=== PATIENT | male | born 1965 | race Caucasian/White ===

== ENCOUNTER 2017-05-27 11:32 | Day surgery (SDC) | payer BC ==
[2017-05-27] MEDS ORDERED: ceFAZolin 2 GM/DEXTROSE 100 ML IV ONE (12:16)
--- NOTE | 2017-05-27 12:28 | PDANEPAE ---
ANE History of Present Illness Patient presents for excisional biopsy of left neck lymph node. ANE Past Medical History - Cardiovascular History Hx Hypertension: No Hx Arrhythmias: No Hx Chest Pain: No Hx Coronary Artery / Peripheral Vascular Disease: No Hx CHF / Valvular Disease: No Hx Palpitations: No - Pulmonary History Hx COPD: No Hx Asthma/Reactive Airway Disease: No Hx Recent Upper Respiratory Infection: No Hx Oxygen in Use at Home: No Hx Sleep Apnea: No Sleep Apnea Screening Result - Last Documented: Negative - Neurologic History Hx Cerebrovascular Accident: No Hx Seizures: No Hx Dementia: No - Endocrine History Hx Diabetes: No - Renal History Hx Renal Disorders: No - Liver History Hx Hepatic Disorders: No - Neurological & Psychiatric Hx Hx Neurological and Psychiatric Disorders: No - Cancer History Hx Cancer: Yes Cancer History Comment: MELANOMA - Congenital Disorder History Hx Congenital Disorders: No - GI History Hx Gastrointestinal Disorders: No - Chronic Pain History Chronic Pain: Yes (LT SIDE OF NECK) - Surgical History Prior Surgeries: REMVL LT SIDED FACE MELANOMA 2016. KNEE SCOPE ANE Review of Systems Review of Systems: - Exercise capacity METS (RN): 4 METS ANE Patient History - Allergies Allergies/Adverse Reactions: No Known Allergies Allergy (Unverified 10/22/09 11:22) - Home Medications Home Medications: Herbal Drugs DAILY 05/26/17 [Last Taken Unknown] ZOLPIDEM TARTRATE HS 05/26/17 [Last Taken Unknown] - NPO status NPO Since - Solids (Date): 05/27/17 (sausage egg mcMuffin) NPO Since - Solids (Time): 10:00 - Anes Hx Anes Hx: no prior problems - Smoking Hx Smoking Status: Former smoker ANE Labs/Vital Signs - Vital Signs Height: 175.26 cm Weight: 95.254 kg ANE Physical Exam - Airway Neck exam: FROM, increased neck circumference Mallampati Score: Class 2 Mouth exam: normal dental/mouth exam - Pulmonary Pulmonary: no respiratory distress - Cardiovascular Cardiovascular: regular rate and rhythym - ASA Status ASA Status: II ANE Anesthesia Plan Anesthesia Plan: MAC (Light sedation only. RBA discussed at length including the risk of aspiration.)
[2017-05-27] MEDS ORDERED: LIDOCAINE 1% 300 MG/30 ML SDV ONE (12:41)
[2017-05-27] MEDS ORDERED: BUPIVACAINE 0.5% 30 ML SDV ONE (12:42)
[2017-05-27] MEDS ORDERED: LIDOCAINE 2% 5 ML SDV ONE (12:47)
[2017-05-27] MEDS ORDERED: PROPOFOL/EMULSION 500 MG/50 ML BOTTLE IV ONE (12:47)
--- NOTE | 2017-05-27 12:57 | PDGENHP ---
History & Physical Chief Complaint: Neck mass History of Present Illness: nack mass Pertinent Past, Social, Family History: Reviewed Relevant Physical Exam: Alert, interactive. Left neck mass. CTA, RR. Assessment & Plan Assessment: Left neck mass Plan: Plan for biopsy of left neck.
[2017-05-27] MEDS ORDERED: NALOXONE HCL 0.4 MG/ML INJ IVP PRN (13:47)
--- NOTE | 2017-05-27 14:05 | POSTOPPROG ---
Post Op Note Date of Operation: 05/27/17 Surgeon: Rosendo Anguiano Anesthesia: IV Sedation Pre-op Diagnosis: Left neck mass Post-op Diagnosis: Left neck mass Indication: Left neck mass Procedure: Left neck mass excisional biopsy Findings: Left neck mass Inf/Abcess present in the surg proc area at time of surgery?: No Depth: Deep Incisional (Fascial) EBL: Minimal Complications: NONE Specimen(s): Left neck mass
--- NOTE | 2017-05-27 14:10 | POSTANESTH ---
Post Anesthetic Evaluation Cardiovascular Status: Normal, Stable Respiratory Status: Normal, Stable Level of Consciousness/Mental Status: Can Participate in Eval Pain Control: Adequate, Prn Tx Ordered Nausea/Vomiting Control: Adequate, Prn Tx Ordered Complications Possibly Related to Anesthesia: None Noted
[2017-05-27 14:16] VITALS: TEMP 97.7
[2017-05-27 14:27] VITALS: BP 147/97
[2017-05-27 14:29] VITALS: PULSE 73; RESP 14; O2SAT 95
== END 2017-05-27 14:39 | disposition home or self-care (01) ==
LOC: FSGY 11:32
PROVIDERS: ATTEND Otolaryngology
PROC: 07B20ZX Excision of Left Neck Lymphatic, Open Approach, Diagnostic (ICD-10-PCS; principal; 2017-05-27 12:30)
DX: C77.0 Secondary and unspecified malignant neoplasm of lymph nodes of head, face and neck (principal); R22.1 Localized swelling, mass and lump, neck; Z85.820 Personal history of malignant melanoma of skin
CPT/HCPCS: J0171; J0690; J2704

== ENCOUNTER → 2017-08-01 | Outpatient (CLI) | payer BC | LOC: FIMAGING 12:19 | PROVIDERS: ATTEND Otolaryngology | DX: Z13.83 Encounter for screening for respiratory disorder NEC (principal); Z85.820 Personal history of malignant melanoma of skin ==

== ENCOUNTER 2017-12-07 13:10 | Emergency (ER) | payer BC ==
--- NOTE | 2017-12-07 13:48 | EDPHY ---
H & P Stated Complaint: hx melanoma with lung mets/coughing up blood - Personal History Current Tetanus/Diphtheria Vaccine: Unsure - Medical/Surgical History Hx Asthma: No Hx Chronic Respiratory Disease: No Hx Diabetes: No Hx Cardiac Disease: No Hx Renal Disease: No Hx Cirrhosis: No Hx Alcoholism: No Hx HIV/AIDS: No Hx Splenectomy or Spleen Trauma: No Other PMH: Knee surgery "years ago" melanoma with lung mets - Social History Smoking Status: Never smoked Drug Use: None Time Seen by Provider: 12/07/17 13:26 HPI/ROS: CHIEF COMPLAINT: Hemoptysis HISTORY OF PRESENT ILLNESS: 52-year-old male with metastatic melanoma presents after an episode of hemoptysis. He had 1 episode of coughing up a small amount of blood, mixed with sputum, just prior to arrival. He has not been ill and has had no prior episodes of hemoptysis. Diagnosed with melanoma in 2012, status post lymph node resection and parotid resection. Currently on chemotherapy through [facility]. Not on anticoagulants. REVIEW OF SYSTEMS: complete 10 point ROS negative except at noted in the HPI (Jessica Barraza) - Social History Additional Social History: Oncologist: Dr. Quezada at [facility] [phone] (Jessica Barraza) - Physical Exam Exam: General Appearance: Alert, pleasant Eyes: Pupils equal and round, no conjunctival pallor or injection ENT, Mouth: Mucous membranes moist Neck: Normal inspection Respiratory: Lungs are clear to auscultation Cardiovascular: Regular rate and rhythm Gastrointestinal: Abdomen is soft and nontender Neurological: A&O, nonfocal, normal gait Skin: Warm and dry, no rash Extremities: Nontender, no pedal edema Psychiatric: Mood and affect normal (Jessica Barraza) Constitutional: Initial Vital Signs Temperature (C) 37.1 C 12/07/17 13:17 Heart Rate 74 12/07/17 13:17 Respiratory Rate 18 12/07/17 13:17 Blood Pressure 138/88 H 12/07/17 13:17 O2 Sat (%) 95 12/07/17 13:17 O2 Delivery Mode Room Air Allergies/Adverse Reactions: No Known Allergies Allergy (Verified 12/07/17 13:15) Home Medications: Medication Instructions Recorded Zolpidem Tartrate [Ambien 5MG (*)] 5 - 10 mg PO HS #0 05/26/17 Acetaminophen [Tylenol 325mg (*)] 325 mg PO DAILY PRN 06/20/17 Multivitamins [Multivitamin (*)] 1 each PO DAILY 06/20/17 Diazepam [Valium 10 MG (*)] 10 mg PO Q8H PRN 07/04/17 Cymbalta 12/07/17 Dilaudid 12/07/17 Epocadastat 12/07/17 Gabapentin 12/07/17 Opdivo 12/07/17 morphINE 12/07/17 Medical Decision Making - Diagnostics EKG Interpretation: EKG interpreted by me reveals normal sinus rhythm, rate 70, no ST or T segment changes. Interpretation: Normal EKG. (Jessica Barraza) ED Course/Re-evaluation: 1500: Patient is signed out to me at change of shift. The patient is awaiting CT imaging results. 1528: I discussed the results with Dr. Galeas. Of note there is lung parenchymal and thoracic joby metastasis with possible splenic, left adrenal and hepatic metastasis. There is also paired, small, peripheral pulmonary artery thrombus in adjacent recanalized venous thrombosis at the left lung base. This is potentially related to tumor or infiltration. No other pulmonary embolus identified. I paged Dr. Quezada who is the patient's oncologist. I left a message with his office to call me back. 1545: I discussed the results with the patient. I answered all their questions. I reviewed Dr. Galeas's finding. On my repeat exam the patient had no respiratory distress. He is sitting comfortably on the bed. I discussed treatment options. Patient does appear to have a small pulmonary embolus. However this appears small and incidental. I do not feel this is the reason for his hemoptysis. It is age indeterminate as it is recannulized. Weighing the risks and benefits of anticoagulation, at this time, I feel the risks exceed the benefits. I discussed this at length with the patient and his . They will attempt to contact Dr. Quezada's office as well. 16 15: I discussed the case again with the patient and his . I answered all her questions. They would like to be discharged from the emergency department. They are given a CD copy of their imaging. He also given their laboratory study results. They will follow up with Dr. Quezada tomorrow. They are given warnings prior to leaving. He will return with worsening symptoms. ( Rachel Altman) This patient presents after 1 episode of minor hemoptysis. No respiratory distress and no ongoing hemoptysis. Concerning for bleeding secondary to tumor versus PE. CT pulmonary angiogram ordered. 3p: Signed over to Dr. Altman at shift change, CT pulmonary angiogram pending. (Jessica Barraza) Differential Diagnosis: Differential diagnosis includes though it is not limited to pneumonia, pneumothorax, pulmonary embolism, aortic dissection, pericarditis, acute coronary syndrome. (Jessica Barraza) - Data Points Laboratory Results: Laboratory Results 12/07/17 13:50 12/07/17 13:50 Medications Given: Discontinued Medications Sodium Chloride (Ns) 1,000 mls @ 0 mls/hr IV ONCE ONE; Wide Open PRN Reason: Protocol Stop: 12/07/17 14:52 Last Admin: 12/07/17 14:54 Dose: 1,000 mls Ondansetron HCl (Zofran) 4 mg IVP EDNOW ONE Stop: 12/07/17 14:52 Last Admin: 12/07/17 14:54 Dose: 4 mg Departure - Departure Disposition: Home, Routine, Self-Care Clinical Impression: Hemoptysis Condition: Good Instructions: Hemoptysis (ED) Additional Instructions: Follow-up with Dr. Quezada tomorrow. Return with increasing chest pain, shortness of breath, worsening bloody cough or any other concerns Referrals: Alex Rose MD [Primary Care Provider] - As per Instructions
[2017-12-07 14:02] LABS: PLATELET COUNT 199 10^3/uL (150-400)
[2017-12-07 14:09] LABS: INR 1.06 (0.83-1.16)
--- NOTE | 2017-12-07 14:12 | CPEKG ---
Heart Rate: 70 RR Interval: 857 P-R Interval: 148 QRSD Interval: 90 QT Interval: 392 QTC Interval: 423 P [place]: 34 QRS [place]: -5 T Wave [place]: 17 EKG Severity - NORMAL ECG - EKG Impression: SINUS RHYTHM Electronically Signed By: Jessica Barraza 07-Dec-2017 15:02:48
[2017-12-07] MEDS ORDERED: IOPAMIDOL (ISOVUE 370) 100 ML BTL IV ONE (14:32)
[2017-12-07] MEDS ORDERED: NS 1,000 ML IV ONE (14:51)
[2017-12-07] MEDS ORDERED: ONDANSETRON 4 MG/2 ML VIAL IVP ONE (14:51)
[2017-12-07] MEDS ORDERED: ONDANSETRON 4 MG/2 ML VIAL ONE (14:52)
[2017-12-07 16:23] VITALS: BP 141/84
== END 2017-12-07 16:22 | disposition home or self-care (01) ==
DX: R04.2 Hemoptysis (principal); E86.9 Volume depletion, unspecified
CPT/HCPCS: 96374; J2405; Q9967